=== PATIENT | female | born 1955 | race Caucasian/White ===

== ENCOUNTER 2023-03-17 10:07 | Day surgery (SDC) | payer MEDICARE, SELFPAY ==
[2023-03-12 14:28] VITALS: BMI 25.9
--- NOTE | 2023-03-14 08:52 | MHC.SHP ---
Pre-Procedural Eval Section A Date of Service: 03/14/23 The patient is an INPATIENT: Yes Changes since office visit: No Cold of Flu in the past 2 weeks, No New Medical Problems, No Changes in Medication and No Patient answered all questions The History & Physical has been completed within 30 days and I have reviewed it.: Yes Section B Chief Complaint: Age-related nuclear cataract, right eye,synechiae Allergies: Allergies Allergy/AdvReac Type Severity Reaction Status Date / Time oxycodone [From Percocet] Allergy Severe Nausea and Verified 03/12/23 14:27 Vomiting pineapple Allergy Severe Rash Verified 03/12/23 14:27 levofloxacin [From Levaquin] Allergy Intermediate Rash Verified 03/12/23 14:27 Plan Diagnosis/Plan: Unchanged I have reviewed the history and physical and performed a pertinent physical examination on my patient. No changes have occurred unless specified. Time Spent With Patient Time: Total time managing care of this patient today ____ minutes.
[2023-03-17 11:22] VITALS: BP 139/54; PULSE 67; RESP 18; TEMP 36.7; O2SAT 98; BMI 24.8
--- NOTE | 2023-03-17 11:38 | P.CONAN_ITS ---
[facility] Past Medical History Medical History Arthritis Cardiac pacemaker Cataract Chronic low back pain Environmental allergies History of chemotherapy History of endometrial cancer HX: breast cancer Left bundle branch block (LBBB) Lumbar herniated disc Nonischemic cardiomyopathy Seasonal allergies Surgical History Surgical History History of surgical procedure on eye proper using laser History of total abdominal hysterectomy and bilateral salpingo-oophorectomy Hx of colonoscopy Hx of left mastectomy History of Problems with Anesthesia: No Social History Social History Are you a primary weekend caregiver to a significant other at home: No Do you presently have visiting nurse or other home services: No Patient Tobacco Use Status: Former Tobacco user Quit Date: 2014 Tobacco use type: Cigarette Use of substances other than those prescribed or required for medical reasons: No Have you been hit, kicked, punched, or otherwise hurt by someone within the past year? If so, by whom?: No Are you DNR?: No Advance Directives: No Advance Directives Information Provided: Yes Advance Directives on File: No Recently lost weight without trying: No Nutrition Risks: No Nutritional Risk Meds Allergies Allergy/AdvReac Type Severity Reaction Status Date / Time oxycodone [From Percocet] Allergy Severe Nausea and Verified 03/12/23 14:27 Vomiting pineapple Allergy Severe Rash Verified 03/12/23 14:27 levofloxacin [From Levaquin] Allergy Intermediate Rash Verified 03/12/23 14:27 Active Medications: Current Medications Cyclopentolate HCl (Cyclopentolate 1 % Ophth Nikki 2 Ml Drpbtl) 1 drop EYE-RIGHT Q5M BINA Stop: 03/17/23 11:41 Lactated Ringer's (Lr) 500 mls @ 50 mls/hr IV .Q10H BINA Stop: 03/17/23 21:29 Ketorolac Tromethamine (Ketorolac Tromethamine 0.5% Op 5 Ml Drops) 1 drop EYE- RIGHT Q5M BINA Stop: 03/17/23 11:41 Phenylephrine HCl (Phenylephrine Hcl 2.5% Oph Nikki 2 Ml Bottle) 1 drop EYE-RIGHT Q5M BINA Stop: 03/17/23 11:41 Povidone Iodine (Povidone Iodine 5 % Ophth Soln 30 Ml Bottle) 1 appl EYE-RIGHT PREOP PRN PRN Reason: Pre-Op Surgical Implant Prophy Tropicamide (Tropicamide 1 % Ophth Nikki 3 Ml Btl) 1 drop EYE-RIGHT Q5M BINA Stop: 03/17/23 11:41 Home Medications Medication Instructions Recorded Confirmed Last Taken Type aspirin 81 mg tablet,delayed 81 mg PO DAILY 03/11/23 03/11/23 Unknown History release furosemide 20 mg tablet 20 mg PO DAILY 03/11/23 03/11/23 Unknown History lisinopril 2.5 mg tablet 2.5 mg PO DAILY 03/11/23 03/11/23 Unknown History metoprolol succinate 50 mg 50 mg PO DAILY 03/11/23 03/11/23 Unknown History tablet,extended release 24 hr potassium chloride 10 mEq 10 meq PO DAILY 03/11/23 03/11/23 Unknown History tablet,extended release cetirizine 10 mg tablet (Zyrtec) 10 mg PO DAILY 03/12/23 03/12/23 Unknown History Exam Exam Date and Time: March 17, 2023 1138 Height,Weight and Vital Signs: Height 5 ft 3 in Weight 63.503 kg Last Vital Signs Temp 98.0 F 03/17/23 11:22 Pulse 67 03/17/23 11:22 Resp 18 03/17/23 11:22 BP 139/54 L 03/17/23 11:22 Pulse Ox 98 03/17/23 11:22 O2 Del Method Room Air 03/17/23 11:22 Airway Mallampati Class: II TM Dist: >3cm Neck ROM: Full Loose/Missing/Broken Teeth: No Heart: RRR Lungs: CTA Assessment and Plan Assessment Anesthesia Assessment: Anesthesia Plan Discussed Final Anesthetic Review History of Problems with Anesthesia: No NPO: Yes ASA Class: III Final Preanesthetic Review: Meds/Allgs Chart Reviewed, Consent Obtained/Reviewed and Anes Risks/Benef Reviewed Patient Risk: Intermediate Procedure Risk: Low Anesthetic Plan Anesthetic Plan: MAC: Disposition: Standard PACU
[2023-03-17] MEDS: Tetracaine HCl/PF 0.5% Oph Sol 4 ML DROPS 1 DROP EYE-RIGHT (11:39)
[2023-03-17] MEDS: Phenylephrine HCL 2.5% Oph SoL 2 ML BOTTLE 1 DROP EYE-RIGHT ×3 (11:39→11:46)
[2023-03-17] MEDS: Ketorolac Tromethamine 0.5% Op 5 ML DROPS 1 DROP EYE-RIGHT ×3 (11:40→11:47)
[2023-03-17] MEDS: Cyclopentolate 1 % Ophth Sol 2 ML DRPBTL 1 DROP EYE-RIGHT ×3 (11:40→11:47)
[2023-03-17] MEDS: Tropicamide 1 % Ophth Sol 3 ML BTL 1 DROP EYE-RIGHT ×3 (11:40→11:47)
[2023-03-17] MEDS: Lactated Ringers 500 ML 50 ML IV (11:51)
--- NOTE | 2023-03-17 12:36 | HO.PNOPHT ---
Ophthalmology Procedure Procedure Date of Service: 03/17/23 Ophthalmology Viscoelastic: Healkyle Domingot Dual Pack Pro Ophthalmology Lenses: TECNIS [id number] (24.5) Procedure Notes: PREOPERATIVE DIAGNOSIS: Decreased visual acuity right eye secondary to cataract POSTOPERATIVE DIAGNOSIS: Same PROCEDURE: Right cataract extraction with intraocular lens insertion SURGEON: Dayday Holloway M.D. ANESTHESIA: Topical/MAC ESTIMATED BLOOD LOSS: None COMPLICATIONS: None After obtaining informed consent, the patient was brought to the operating room suite and placed in the supine position. After adequate sedation per anesthesia, topical drops of Tetracaine were given to the right eye. The eye was then prepped and draped in the usual sterile fashion. The operating room microscope was then positioned over the operative eye and a lid speculum placed. A paracentesis was created. Viscoelastic was then instilled into the anterior chamber. A three plane incision was then created temporally, utilizing a 2.85 mm keratome. Capsulotomy forceps were then utilized to create a circular tear capsulotomy. Hydrodissection and hydrodelineation were carried out until adequate mobilization of the nucleus occurred. Phacoemulsification was then utilized to remove the dense central nucleus followed by removal of the cortical material utilizing the automated aspiration irrigation unit. Viscoelastic was instilled into the posterior capsular bag followed by placement of a posterior chamber intraocular lens without difficulty. The residual Viscoelastic was then removed utilizing the automated IA machine. The wound was checked and found to be watertight. The patient tolerated the procedure well and the lid speculum was removed. Intracameral injection of Vigamox 0.1 mL followed by a subtenon injection of Kenalog-40 0.2 mL were administered. The patient will be seen in the a.m.
[2023-03-17 13:02] VITALS: BP 165/65; PULSE 70; RESP 18; TEMP 36.4; O2SAT 96
== END 2023-03-17 13:09 | disposition home or self-care (01) ==
PROVIDERS: PCP Internal Medicine; Visit Provider Ophthalmology
PROC: (CPT 66985; principal; 2023-03-17 12:40)
DX: H25.11 Age-related nuclear cataract, right eye (principal); H21.51 Anterior synechiae (iris); H52.4 Presbyopia; H25.813 Combined forms of age-related cataract, bilateral; H40.213 Acute angle-closure glaucoma, bilateral; H18.413 Arcus senilis, bilateral; J30.2 Other seasonal allergic rhinitis; I42.9 Cardiomyopathy, unspecified; I44.7 Left bundle-branch block, unspecified; Z79.82 Long term (current) use of aspirin; Z79.899 Other long term (current) drug therapy; Z88.8 Allergy status to other drugs, medicaments and biological substances; Z85.3 Personal history of malignant neoplasm of breast; Z90.12 Acquired absence of left breast and nipple; Z87.891 Personal history of nicotine dependence
CPT/HCPCS: 66984; J2250; J3010; J3301; V2632

== ENCOUNTER 2023-03-31 07:25 | Day surgery (SDC) | payer MEDICARE, SELFPAY ==
[2023-03-12 14:33] VITALS: BMI 25.9
--- NOTE | 2023-03-28 08:19 | MHC.SHP ---
Pre-Procedural Eval Section A Date of Service: 03/28/23 The patient is an INPATIENT: No Changes since office visit: No Cold of Flu in the past 2 weeks, No New Medical Problems, No Changes in Medication and No Patient answered all questions The History & Physical has been completed within 30 days and I have reviewed it.: Yes Section B Chief Complaint: Age-related nuclear cataract, left eye,synechiae Allergies: Allergies Allergy/AdvReac Type Severity Reaction Status Date / Time oxycodone [From Percocet] Allergy Severe Nausea and Verified 03/12/23 14:27 Vomiting pineapple Allergy Severe Rash Verified 03/12/23 14:27 levofloxacin [From Levaquin] Allergy Intermediate Rash Verified 03/12/23 14:27 Plan Diagnosis/Plan: Unchanged I have reviewed the history and physical and performed a pertinent physical examination on my patient. No changes have occurred unless specified. Time Spent With Patient Time: Total time managing care of this patient today ____ minutes.
--- NOTE | 2023-03-28 09:27 | HO.ANESPROP2 ---
Documented by User: Jennifer Maddox NP 03/28/23 09:28 HPI - Anesthesia Eval Consult details Narrative: 67yo Left Cataract Extraction IOL Insertion and synechiolysis PCP cleared 1st eye 03/17/23 with Fent 50, Midaz 1 Pacer in situ PMFSH Past Medical History Medical History Arthritis Cardiac pacemaker Cataract Chronic low back pain Environmental allergies History of chemotherapy History of endometrial cancer HX: breast cancer Left bundle branch block (LBBB) Lumbar herniated disc Nonischemic cardiomyopathy Seasonal allergies Surgical History Surgical History History of surgical procedure on eye proper using laser History of total abdominal hysterectomy and bilateral salpingo-oophorectomy Hx of colonoscopy Hx of left mastectomy History of Problems with Anesthesia: No Social History Social History Are you a primary career guidance counselor to a significant other at home: No Do you presently have visiting nurse or other home services: No Patient Tobacco Use Status: Former Tobacco user Quit Date: 2014 Tobacco use type: Cigarette Use of substances other than those prescribed or required for medical reasons: No Have you been hit, kicked, punched, or otherwise hurt by someone within the past year? If so, by whom?: No Are you DNR?: No Advance Directives: No Advance Directives Information Provided: Yes Advance Directives on File: No Recently lost weight without trying: No Nutrition Risks: No Nutritional Risk Meds Allergies Allergy/AdvReac Type Severity Reaction Status Date / Time oxycodone [From Percocet] Allergy Severe Nausea and Verified 03/12/23 14:27 Vomiting pineapple Allergy Severe Rash Verified 03/12/23 14:27 levofloxacin [From Levaquin] Allergy Intermediate Rash Verified 03/12/23 14:27 Home Medications Medication Instructions Recorded Confirmed Last Taken Type aspirin 81 mg tablet,delayed 81 mg PO DAILY 03/11/23 03/11/23 Unknown History release furosemide 20 mg tablet 20 mg PO DAILY 03/11/23 03/11/23 Unknown History lisinopril 2.5 mg tablet 2.5 mg PO DAILY 03/11/23 03/11/23 Unknown History metoprolol succinate 50 mg 50 mg PO DAILY 03/11/23 03/11/23 Unknown History tablet,extended release 24 hr potassium chloride 10 mEq 10 meq PO DAILY 03/11/23 03/11/23 Unknown History tablet,extended release cetirizine 10 mg tablet (Zyrtec) 10 mg PO DAILY 03/12/23 03/12/23 Unknown History Exam Exam Date and Time: March 28, [id number] Height,Weight and Vital Signs: Height 5 ft 3 in Weight 66.224 kg Assessment and Plan Assessment Anesthesia Assessment: Chart Reviewed Final Anesthetic Review History of Problems with Anesthesia: No Documented by User: Candace Castle MD 03/31/23 07:52 PMFSH Past Medical History Medical History Arthritis Cardiac pacemaker Cataract Chronic low back pain Environmental allergies History of chemotherapy History of endometrial cancer HX: breast cancer Left bundle branch block (LBBB) Lumbar herniated disc Nonischemic cardiomyopathy Seasonal allergies Family History Family history of problems with anesthesia: No Surgical History Surgical History History of surgical procedure on eye proper using laser History of total abdominal hysterectomy and bilateral salpingo-oophorectomy Hx of colonoscopy Hx of left mastectomy Social History Social History Are you a primary career guidance counselor to a significant other at home: No Do you presently have visiting nurse or other home services: No Patient Tobacco Use Status: Former Tobacco user Quit Date: 2014 Tobacco use type: Cigarette Use of substances other than those prescribed or required for medical reasons: No Have you been hit, kicked, punched, or otherwise hurt by someone within the past year? If so, by whom?: No Are you DNR?: No Advance Directives: No Advance Directives Information Provided: Yes Advance Directives on File: No Recently lost weight without trying: No Nutrition Risks: No Nutritional Risk Meds Allergies Allergy/AdvReac Type Severity Reaction Status Date / Time oxycodone [From Percocet] Allergy Severe Nausea and Verified 03/12/23 14:27 Vomiting pineapple Allergy Severe Rash Verified 03/12/23 14:27 levofloxacin [From Levaquin] Allergy Intermediate Rash Verified 03/12/23 14:27 Home Medications Medication Instructions Recorded Confirmed Last Taken Type aspirin 81 mg tablet,delayed 81 mg PO DAILY 03/11/23 03/11/23 Unknown History release furosemide 20 mg tablet 20 mg PO DAILY 03/11/23 03/11/23 Unknown History lisinopril 2.5 mg tablet 2.5 mg PO DAILY 03/11/23 03/11/23 Unknown History metoprolol succinate 50 mg 50 mg PO DAILY 03/11/23 03/11/23 Unknown History tablet,extended release 24 hr potassium chloride 10 mEq 10 meq PO DAILY 03/11/23 03/11/23 Unknown History tablet,extended release cetirizine 10 mg tablet (Zyrtec) 10 mg PO DAILY 03/12/23 03/12/23 Unknown History Exam Airway Mallampati Class: II TM Dist: >3cm Neck ROM: Full Heart: rrr Lungs: cta Assessment and Plan Assessment Anesthesia Assessment: Anesthesia Plan Discussed Final Anesthetic Review Family History of Problems with Anesthesia: No NPO: Yes ASA Class: II Final Preanesthetic Review: No Changes in Pt Med Stat, Meds/Allgs Chart Reviewed, Consent Obtained/Reviewed and Anes Risks/Benef Reviewed Patient Risk: Low Procedure Risk: Low Anesthetic Plan Anesthetic Plan: MAC: Disposition: Standard PACU
[2023-03-31 07:55] VITALS: BP 137/67; PULSE 77; RESP 16; TEMP 36.3; O2SAT 96
[2023-03-31] MEDS: Tetracaine HCl/PF 0.5% Oph Sol 4 ML DROPS 1 DROP EYE-LEFT (07:57)
[2023-03-31] MEDS: Tropicamide 1 % Ophth Sol 3 ML BTL 1 DROP EYE-LEFT ×3 (07:58→08:09)
[2023-03-31] MEDS: Cyclopentolate 1 % Ophth Sol 2 ML DRPBTL 1 DROP EYE-LEFT ×3 (08:00→08:09)
[2023-03-31] MEDS: Ketorolac Tromethamine 0.5% Op 5 ML DROPS 1 DROP EYE-LEFT ×3 (08:01→08:10)
[2023-03-31] MEDS: Phenylephrine HCL 2.5% Oph SoL 2 ML BOTTLE 1 DROP EYE-LEFT ×3 (08:02→08:11)
[2023-03-31] MEDS: Lactated Ringers 500 ML 50 ML IV (08:11)
--- NOTE | 2023-03-31 09:20 | HO.PNOPHT ---
Ophthalmology Procedure Procedure Date of Service: 03/31/23 Ophthalmology Viscoelastic: Healkyle Domingot Dual Pack Pro Ophthalmology Lenses: TECNIS [id number] (24.5) Procedure Notes: PREOPERATIVE DIAGNOSIS: Decreased visual acuity left eye secondary to cataract POSTOPERATIVE DIAGNOSIS: Same PROCEDURE: Left cataract extraction with intraocular lens insertion SURGEON: Dayday Holloway M.D. ANESTHESIA: Topical/MAC ESTIMATED BLOOD LOSS: None COMPLICATIONS: None After obtaining informed consent, the patient was brought to the operation room suite and placed in the supine position. After adequate sedation per anesthesia, topical drops of Tetracaine were given to the left eye. The eye was then prepped and draped in the usual sterile fashion. The operating room microscope was then positioned over the operative eye and a lid speculum placed. A paracentesis was created. Viscoelastic was then instilled into the anterior chamber. A three plane incision was then created temporally, utilizing a 2.85 mm keratome. Capsulotomy forceps were then utilized to create a circular tear capsulotomy. Hydrodissection and hydrodelineation were carried out until adequate mobilization of the nucleus occurred. Phacoemulsification was then utilized to remove the dense central nucleus followed by removal of the cortical material utilizing the automated aspiration irrigation unit. Viscoat elastic was instilled into the posterior capsular bag followed by placement of a posterior chamber intraocular lens without difficulty. The residual Viscoat elastic was then removed utilizing the automated IA machine. The wound was check and found to be watertight. The patient tolerated the procedure well and the lid speculum was removed. Intracameral injection of Vigamox 0.1 mL followed by a subtenon injection of Kenalog-40 0.2 mL were administered. The patient will be seen in the a.m.
[2023-03-31 09:41] VITALS: BP 132/64; PULSE 67; RESP 18; TEMP 36.6; O2SAT 99
== END 2023-03-31 09:53 | disposition home or self-care (01) ==
PROVIDERS: PCP Internal Medicine; Visit Provider Ophthalmology
PROC: (CPT 66985; principal; 2023-03-31 09:50)
DX: H25.12 Age-related nuclear cataract, left eye (principal); H21.51 Anterior synechiae (iris); H52.4 Presbyopia; H40.213 Acute angle-closure glaucoma, bilateral; I42.9 Cardiomyopathy, unspecified; Z85.3 Personal history of malignant neoplasm of breast; J30.2 Other seasonal allergic rhinitis; Z79.899 Other long term (current) drug therapy; Z88.8 Allergy status to other drugs, medicaments and biological substances; Z87.891 Personal history of nicotine dependence
CPT/HCPCS: 66984; J2250; J3010; J3301; V2632